=== PATIENT | female | born 1965 | race Caucasian/White ===

== ENCOUNTER 2017-10-06 11:48 | Inpatient (IN) | payer SELFPAY ==
[~2017-10-06] VITALS: Ht 167.6 cm; Wt 59.5 kg
[2017-10-06] MEDS: ACETAMINOPHEN/HYDROcodone 325 MG/10 MG TAB PO PRN ×2 (11:35→23:35)
[~2017-10-06 11:48] MED LIST: BACT800T5 PO; CELE20TA PO; CLIN1CAP5 PO; HYDR10TA16 PO; HYDROCHLOROT; LORA-474 PO; LORT7.5T3 PO
[2017-10-06 11:49] VITALS: BP 160/100; PULSE 114; RESP 20; TEMP 99.5; O2SAT 96
[2017-10-06 12:37] LABS: AUTOMATED NEUTROPHIL # 7.7 TH/MM3 (1.8-7.7); BASOPHIL % 0.1 % (0.0-2.0); EOSINOPHIL % 0.3 % (0.0-4.0); HEMATOCRIT 41.7 % (35.0-46.0); HEMOGLOBIN 14.3 GM/DL (11.6-15.3); LYMPH % 7.8 % (9.0-44.0); LYMPHOCYTE # 0.7 TH/MM3 (1.0-4.8); MEAN CELL VOLUME 106.6 FL (80.0-100.0); MEAN CORPUSCULAR HEMOGLOBIN 36.6 PG (27.0-34.0); MEAN CORPUSCULAR HGB CONC 34.3 % (32.0-36.0); MONO % 9.1 % (0.0-8.0); MONOCYTE # 0.8 TH/MM3 (0-0.9); NEUT % 82.7 % (16.0-70.0); PLATELET COUNT 147 TH/MM3 (150-450); RED BLOOD COUNT 3.91 MIL/MM3 (4.00-5.30); RED CELL DISTRIBUTION WIDTH 13.9 % (11.6-17.2); WHITE BLOOD COUNT 9.3 TH/MM3 (4.0-11.0)
[2017-10-06 12:59] LABS: ALBUMIN 4.3 GM/DL (3.4-5.0); ALT (GPT) 59 U/L (10-53); AST (GOT) 96 U/L (15-37); BICARBONATE 28.8 MEQ/L (21.0-32.0); BLOOD UREA NITROGEN 15 MG/DL (7-18); CALCIUM 9.4 MG/DL (8.5-10.1); CHLORIDE 97 MEQ/L (98-107); CREATININE 1.03 MG/DL (0.50-1.00); GLUCOSE,RANDOM 127 MG/DL (74-106); SODIUM (NA) 134 MEQ/L (136-145)
[2017-10-06 13:02] LABS: ALKALINE PHOSPHATASE 120 U/L (45-117); LIPASE 7510 U/L (73-393); TOTAL BILIRUBIN ADULT 0.8 MG/DL (0.2-1.0); TOTAL PROTEIN 8.7 GM/DL (6.4-8.2)
--- NOTE | 2017-10-06 14:09 | PD ---
HPI Chief Complaint: Abdominal Pain Time Seen by Provider: 14:08 Travel History International Travel<30 days: No Contact w/Intl Traveler<30days: No Traveled to known affect area: No History of Present Illness HPI 52-year-old female came to the emergency room with history of epigastric pain radiating to both sides and to her back. She says this is been going on for past 2 days. She has been nauseous but did not vomit. Bowel movements are normal. Patient has not had this kind of pain in the past. She drinks alcohol and says she does not drink every day but most of the days of the week. She did drink yesterday and the day before. She drinks vodka. There was blood test done in triage and the results of back by the time she came in the emergency room. Her lipase is markedly elevated. Patient had her gallbladder taken out 10 years ago. FOR[facility]LY [facility] Past Medical History Narrative Medical List of her past medical, surgical, social and family history is reviewed from the nursing note. Blood Disorders: No Anxiety: Yes Depression: Yes Cancer: No Cardiovascular Problems: Yes (HTN) Endocrine: Yes Genitourinary: No Hypertension: Yes Immune Disorder: No Implanted Vascular Access Dvce: Yes Kidney Stones: Yes Musculoskeletal: Yes Neurologic: No Psychiatric: No Respiratory: No Thyroid Disease: Yes ?: Not Past Surgical History Body Medical Devices: METAL IN TOOTH FROM ROOT CANAL Other Surgery: Yes (LEFT FOOT) Social History Alcohol Use: Yes (SOCIAL) Tobacco Use: Yes (1 PPD) Substance Use: No Allergies-Medications (Allergen,Severity, Reaction): Coded Allergies: No Known Drug Allergies (Verified Allergy, Unknown, 10/06/17) Comments List of her allergies reviewed from the nursing note. Reported Meds & Prescriptions Reported Meds & Active Scripts Active Reported Paroxetine (Paroxetine HCl) 10 Mg Tab 10 Mg PO DAILY Hydrocodone-Acetaminophen 10-325 mg Tab 1 Tab PO Q4H PRN Lorazepam 1 Mg Tab 1 Mg PO Q8H PRN Xanax (Alprazolam) 1 Mg Tab 1 Mg PO Q6H PRN Amlodipine (Amlodipine Besylate) 5 Mg Tab 5 Mg PO DAILY Narrative Medication List of her home medications reviewed from the nursing note. Review of Systems Except as stated in HPI: all other systems reviewed are Neg Gastrointestinal: Positive: Nausea, Abdominal Pain Physical Exam Narrative GENERAL: Awake, alert, moderate to significant distress SKIN: Focused skin assessment warm/dry. HEAD: Atraumatic. Normocephalic. EYES: Pupils equal and round. No scleral icterus. No injection or drainage. ENT: No nasal bleeding or discharge. Mucous membranes pink and moist. NECK: Trachea midline. No JVD. CARDIOVASCULAR: Regular rate and rhythm. No murmur appreciated. RESPIRATORY: No accessory muscle use. Clear to auscultation. Breath sounds equal bilaterally. GASTROINTESTINAL: Abdomen soft, tender in the epigastric area, nondistended. Hepatic and splenic margins not palpable. MUSCULOSKELETAL: No obvious deformities. No clubbing. No cyanosis. No edema. NEUROLOGICAL: Awake and alert. No obvious cranial nerve deficits. Motor grossly within normal limits. Normal speech. PSYCHIATRIC: Appropriate mood and affect; insight and judgment normal. Data Data Last Documented VS Vital Signs Date Time Temp Pulse Resp B/P (MAP) Pulse Ox O2 Delivery O2 Flow Rate FiO2 10/06/17 14:55 96 20 172/93 (119) 97 Room Air 10/06/17 11:49 99.5 Orders Orders Complete Blood Count With Diff (10/06/17 11:58) Comprehensive Metabolic Panel (10/06/17 11:58) Lipase (10/06/17 11:58) Urinalysis - C+S If Indicated (10/06/17 11:58) Sodium Chlor 0.9% 1000 Ml Inj (Ns 1000 M (10/06/17 14:45) Morphine Inj (Morphine Inj) (10/06/17 14:45) Admit Order (Ed Use Only) (10/06/17 15:24) Labs Laboratory Tests Test 10/06/17 12:06 10/06/17 14:40 White Blood Count 9.3 TH/MM3 Red Blood Count 3.91 MIL/MM3 Hemoglobin 14.3 GM/DL Hematocrit 41.7 % Mean Corpuscular Volume 106.6 FL Mean Corpuscular Hemoglobin 36.6 PG Mean Corpuscular Hemoglobin Concent 34.3 % Red Cell Distribution Width 13.9 % Platelet Count 147 TH/MM3 Mean Platelet Volume 9.0 FL Neutrophils (%) (Auto) 82.7 % Lymphocytes (%) (Auto) 7.8 % Monocytes (%) (Auto) 9.1 % Eosinophils (%) (Auto) 0.3 % Basophils (%) (Auto) 0.1 % Neutrophils # (Auto) 7.7 TH/MM3 Lymphocytes # (Auto) 0.7 TH/MM3 Monocytes # (Auto) 0.8 TH/MM3 Eosinophils # (Auto) 0.0 TH/MM3 Basophils # (Auto) 0.0 TH/MM3 CBC Comment DIFF FINAL Differential Comment Blood Urea Nitrogen 15 MG/DL Creatinine 1.03 MG/DL Random Glucose 127 MG/DL Total Protein 8.7 GM/DL Albumin 4.3 GM/DL Calcium Level 9.4 MG/DL Alkaline Phosphatase 120 U/L Aspartate Amino Transf (AST/SGOT) 96 U/L Alanine Aminotransferase (ALT/SGPT) 59 U/L Total Bilirubin 0.8 MG/DL Sodium Level 134 MEQ/L Potassium Level 3.8 MEQ/L Chloride Level 97 MEQ/L Carbon Dioxide Level 28.8 MEQ/L Anion Gap 8 MEQ/L Triglycerides Level 99 MG/DL Lipase 7510 U/L Urine Color YELLOW Urine Turbidity CLEAR Urine pH 5.5 Urine Specific [place] 1.016 Urine Protein NEG mg/dL Urine Glucose (UA) NEG mg/dL Urine Ketones NEG mg/dL Urine Occult Blood NEG Urine Nitrite NEG Urine Bilirubin NEG Urine Urobilinogen LESS THAN 2.0 MG/DL Urine Leukocyte Esterase NEG Urine WBC LESS THAN 1 /hpf Urine Squamous Epithelial Cells <1 /hpf Microscopic Urinalysis Comment CULT NOT INDICATED MDM Medical Decision Making Medical Screen Exam Complete: Yes Emergency Medical Condition: Yes Medical Record Reviewed: Yes Differential Diagnosis Acute pancreatitis Narrative Course 3:05 PM patient has been medicated for pain and IV fluid given. I had a long discussion with her and expressed to her my concerns about her significantly elevated lipase and the need to be admitted, stay nothing by mouth and get IV fluid and pain medication. Patient has agreed to stay. Awaiting for the hospitalist to call back. Procedures EKG Prior to Arrival: No Diagnosis Primary Impression: Acute pancreatitis Qualified Codes: K85.90 - Acute pancreatitis without necrosis or infection, unspecified Additional Impression: Intractable pain Admitting Information Admitting Physician Requests: Yessenia Leong MD Oct 06, 2017 14:08
[2017-10-06] MEDS ORDERED: MORPHINE SULFATE 2 MG/ML INJ IV PUSH ONE (14:45)
[2017-10-06] MEDS ORDERED: SODIUM CHLOR 0.9% 1000 ML INJ 1,000 ML IV ONE (14:45)
[2017-10-06] MEDS ORDERED: LORA1TAB12 PO (14:54)
[2017-10-06] MEDS ORDERED: PARO10TA2 PO (14:54)
[2017-10-06] MEDS ORDERED: XANA1TAB2 PO (14:54)
[2017-10-06] MEDS ORDERED: AMLO5TAB2 PO (14:54)
[2017-10-06] MEDS ORDERED: HYDR-3583 PO (14:54)
[2017-10-06 14:55] VITALS: BP 172/93; PULSE 96; RESP 20; O2SAT 97
[2017-10-06] MEDS ORDERED: ACETAMINOPHEN 325 MG TAB PO PRN (15:30)
[2017-10-06] MEDS ORDERED: cloNIDine HCL 0.1 MG TAB PO PRN (15:30)
[2017-10-06] MEDS ORDERED: LORazepam 2 MG TAB PO PRN (15:30)
[2017-10-06] MEDS ORDERED: FLUMAZENIL 0.5 MG/5 ML VIAL IV PUSH PRN (15:30)
[2017-10-06] MEDS ORDERED: ACETAMINOPHEN/HYDROcodone 325 MG/5 MG TAB PO PRN (15:30)
[2017-10-06] MEDS ORDERED: SODIUM CHLORIDE 0.9% FLUSH 10 ML FLUSH IV FLUSH PRN (15:30)
[2017-10-06] MEDS ORDERED: LORazepam 2 MG/ML VIAL IV PUSH PRN ×4 (15:30)
[2017-10-06] MEDS ORDERED: LORazepam 1 MG TAB PO PRN (15:30)
[2017-10-06] MEDS ORDERED: MORPHINE SULFATE 2 MG/ML INJ IV PUSH PRN ×2 (15:30→16:15)
[2017-10-06] MEDS ORDERED: NALOXONE HCL 0.4 MG/ML AMP IV PUSH PRN (15:30)
[2017-10-06 15:38] LABS: BILIRUBIN, URINE NEG (NEG); BLOOD, URINE NEG (NEG); GLUCOSE,URINE NEG (NEG); KETONE, URINE NEG (NEG); NITRITE,URINE NEG (NEG); PH, URINE 5.5 (5.0-8.5); SQUAMOUS EPITHELIAL CELL URINE <1 /hpf (0-5); URINE COLOR YELLOW (YELLW/STRAW); URINE LEUKOCYTE ESTERASE NEG (NEG)
[2017-10-06] MEDS: SODIUM CHLOR 0.9% 1000 ML INJ 1,000 ML IV SCH ×2 (15:55→23:21)
[2017-10-06 16:00] VITALS: BP 171/92; PULSE 97; RESP 20; TEMP 98.2; O2SAT 98
--- NOTE | 2017-10-06 16:04 | HHI.HP ---
[facility] Service [facility] Primary Care Physician Mable Del Valle D.O. Admission Diagnosis acute pancreatitis, intractable pain Diagnoses: Chief Complaint: Abdominal pain with nausea and vomiting Travel History International Travel<30 Days: No Contact w/Intl Traveler <30 Da: No Traveled to Known Affected Are: No History of Present Illness 50-year-old white female with history of hypertension presents emergency room with a 2 day history of worsening nausea, nonbilious vomiting, upper epigastric abdominal pain worse with solid and liquid food intake. She denies any associated diarrhea and denies any bloody stools or black stools. She denies any unusual food intake or recent travels. She reports she had previous gallbladder removal. She denies any previous symptoms similar to this. She describes abdominal pain as a constant sharp abdominal pain with bandlike radiation. She reports he does drink 2-3 alcoholic liquor drinks on a daily basis. She states that she does not have a history of all withdrawal or alcohol abuse. She states that she takes chronic [place] for pain as prescribed by her primary care physician for her history of chronic leg and foot pain due to previous trauma to the area. She also takes Ativan for her history of anxiety. She states that she is not allergic to codeine as documented previously her records. She denies any associated chills or fever with her symptoms. Review of Systems Constitutional: COMPLAINS OF: Change in appetite, DENIES: Fatigue, Fever, Chills Endocrine: DENIES: Heat/cold intolerance Eyes: DENIES: Blurred vision, Eye pain, Vision loss Ears, nose, mouth, throat: DENIES: Hearing loss, Nasal discharge, Throat pain, Ear Pain, Sinus Pain Respiratory: DENIES: Cough, Shortness of breath Cardiovascular: DENIES: Chest pain, Palpitations, Dyspnea on Exertion, Lower Extremity Edema Gastrointestinal: COMPLAINS OF: Abdominal pain, Nausea, Vomiting, Anorexia, DENIES: Black stools, Bloody stools, Constipation, Diarrhea, Difficulty Swallowing Genitourinary: DENIES: Dysuria Musculoskeletal: DENIES: Joint pain, Muscle aches, Stiffness Integumentary: DENIES: Rash Hematologic/lymphatic: DENIES: Bruising, Lymphadenopathy Immunologic/allergic: DENIES: Eczema Neurologic: DENIES: Headache, Localized weakness, Paresthesias Psychiatric: COMPLAINS OF: Anxiety, DENIES: Depression, Suicidal Ideation Past Family Social History Past Medical History Chronic pain, lower leg due to previous trauma Hypertension Anxiety Past Surgical History Previous left leg surgery due to trauma Cholecystectomy Reported Medications Hydrocodone-Acetaminophen 10-325 mg Tab 1 Tab PO Q4H PRN Lorazepam 1 Mg Tab 1 Mg PO Q8H PRN Amlodipine (Amlodipine Besylate) 5 Mg Tab 5 Mg PO DAILY Question with diuretic - possibly HCTZ, she does not recall the dosage of the medication which she takes daily Allergies: Coded Allergies: codeine (Unverified Allergy, Severe, RASH AND ITCHING, 10/06/17) Family History Maternal aunt of breast cancer at 55 Father had colon cancer Social History Smokes 1 pack series per day Drinks 2-3 alcoholic liquor drinks daily Physical Exam Vital Signs Vital Signs Date Time Temp Pulse Resp B/P (MAP) Pulse Ox O2 Delivery O2 Flow Rate FiO2 10/06/17 14:55 96 20 172/93 (119) 97 Room Air 10/06/17 11:49 99.5 114 20 160/100 (120) 96 Room Air Physical Exam GENERAL: This is a well-nourished, well-developed patient, in no apparent distress. SKIN: No rashes, ecchymoses or lesions. Cool and dry. HEAD: Atraumatic. Normocephalic. No temporal or scalp tenderness. EYES: Pupils equal round and reactive. Extraocular motions intact. No scleral icterus. No injection or drainage. ENT: Nose without bleeding, purulent drainage or septal hematoma. Throat without erythema, tonsillar hypertrophy or exudate. Uvula midline. Airway patent. NECK: Trachea midline. No JVD or lymphadenopathy. Supple, nontender, no meningeal signs. CARDIOVASCULAR: Regular rate and rhythm without murmurs, gallops, or rubs. RESPIRATORY: Clear to auscultation. Breath sounds equal bilaterally. No wheezes , rales, or rhonchi. GASTROINTESTINAL: Abdomen soft, non-tender, nondistended. No hepato-splenomegaly , or palpable masses. No guarding. MUSCULOSKELETAL: Extremities without clubbing, cyanosis, or edema. No joint tenderness, effusion, or edema noted. No calf tenderness. Negative Homans sign bilaterally. NEUROLOGICAL: Awake and alert. Cranial nerves II through XII intact. Motor and sensory grossly within normal limits. Five out of 5 muscle strength in all muscle groups. Normal speech. Laboratory Laboratory Tests Test 10/06/17 12:06 10/06/17 14:40 White Blood Count 9.3 Red Blood Count 3.91 Hemoglobin 14.3 Hematocrit 41.7 Mean Corpuscular Volume 106.6 Mean Corpuscular Hemoglobin 36.6 Mean Corpuscular Hemoglobin Concent 34.3 Red Cell Distribution Width 13.9 Platelet Count 147 Mean Platelet Volume 9.0 Neutrophils (%) (Auto) 82.7 Lymphocytes (%) (Auto) 7.8 Monocytes (%) (Auto) 9.1 Eosinophils (%) (Auto) 0.3 Basophils (%) (Auto) 0.1 Neutrophils # (Auto) 7.7 Lymphocytes # (Auto) 0.7 Monocytes # (Auto) 0.8 Eosinophils # (Auto) 0.0 Basophils # (Auto) 0.0 CBC Comment DIFF FINAL Differential Comment Blood Urea Nitrogen 15 Creatinine 1.03 Random Glucose 127 Total Protein 8.7 Albumin 4.3 Calcium Level 9.4 Alkaline Phosphatase 120 Aspartate Amino Transf (AST/SGOT) 96 Alanine Aminotransferase (ALT/SGPT) 59 Total Bilirubin 0.8 Sodium Level 134 Potassium Level 3.8 Chloride Level 97 Carbon Dioxide Level 28.8 Anion Gap 8 Lipase 7510 Urine Color YELLOW Urine Turbidity CLEAR Urine pH 5.5 Urine Specific [place] 1.016 Urine Protein NEG Urine Glucose (UA) NEG Urine Ketones NEG Urine Occult Blood NEG Urine Nitrite NEG Urine Bilirubin NEG Urine Urobilinogen LESS THAN 2.0 Urine Leukocyte Esterase NEG Urine WBC LESS THAN 1 Urine Squamous Epithelial Cells <1 Microscopic Urinalysis Comment CULT NOT INDICATED Result Diagram: 10/06/17 1206 10/06/17 1206 Imaging Caprini VTE Risk Assessment Caprini VTE Risk Assessment: No/Low Risk (score <= 1) Caprini Risk Assessment Model Point Value = 1 Point Value = 2 Point Value = 3 Point Value = 5 Age 41-60 Minor surgery BMI > 25 kg/m2 Swollen legs Varicose veins or History of unexplained or recurrent spontaneous Oral contraceptives or hormone replacement Sepsis (< 1 month) Serious lung disease, including pneumonia (< 1 month) Abnormal pulmonary function Acute myocardial infarction Congestive heart failure (< 1 month) History of inflammatory bowel disease Medical patient at bed rest Age 61-74 Arthroscopic surgery Major open surgery (> 45 min) Laparoscopic surgery (> 45 min) Malignancy Confined to bed (> 72 hours) Immobilizing plaster cast Central venous access Age >= 75 History of VTE Family history of VTE Factor V Leiden Prothrombin [id number] Lupus anticoagulant Anticardiolipin antibodies Elevated serum homocysteine Heparin-induced thrombocytopenia Other congenital or acquired thrombophilia Stroke (< 1 month) Elective arthroplasty Hip, pelvis, or leg fracture Acute spinal cord injury (< 1 month) Prophylaxis Regimen Total Risk Factor Score Risk Level Prophylaxis Regimen 0-1 Low Early ambulation 2 Moderate Order ONE of the following: *Sequential Compression Device (SCD) *Heparin 5000 units SQ BID 3-4 Higher Order ONE of the following medications: *Heparin 5000 units SQ TID *Enoxaparin/Lovenox 40 mg SQ daily (WT < 150 kg, CrCl > 30 mL/min) *Enoxaparin/Lovenox 30 mg SQ daily (WT < 150 kg, CrCl > 10-29 mL/min) *Enoxaparin/Lovenox 30 mg SQ BID (WT < 150 kg, CrCl > 30 mL/min) AND/OR *Sequential Compression Device (SCD) 5 or more Highest Order ONE of the following medications: *Heparin 5000 units SQ TID (Preferred with Epidurals) *Enoxaparin/Lovenox 40 mg SQ daily (WT < 150 kg, CrCl > 30 mL/min) *Enoxaparin/Lovenox 30 mg SQ daily (WT < 150 kg, CrCl > 10-29 mL/min) *Enoxaparin/Lovenox 30 mg SQ BID (WT < 150 kg, CrCl > 30 mL/min) AND *Sequential Compression Device (SCD) Assessment and Plan Problem List: (1) Acute pancreatitis ICD Code: K85.90 - Acute pancreatitis without necrosis or infection, unspecified Status: Acute Assessment and Plan 1. Acute pancreatitis - etiology could be from alcohol induced although patient states that she is not a heavy drinker, as this hilum and the patient for IV pain control, IV fluid hydration, IV antiemetics for supportive care. Place patient on bowel rest with nothing by mouth. Monitor lipase and patient clinically and attempt to start liquid diet in the morning. 2. History of daily alcohol use - place on CIWA protocol to rule out any early alcohol withdrawal symptoms. 3. Hypertension -resume home amlodipine, start patient on clonidine. 4. Tobacco abuse-cessation counseling 5. DVT prophylaxis - No mechanical or pharmaceutical VTE prophalaxis administered due to patient's low risk assessment of VTE. Encouraged ambulation. Physician Certification 2 Midnight Certification Type: Admission for Inpatient Services Order for Inpatient Services The services are ordered in accordance with Medicare regulations or non- Medicare payer requirements, as applicable. In the case of services not specified as inpatient-only, they are appropriately provided as inpatient services in accordance with the 2-midnight benchmark. Estimated LOS (days): 2 days is the estimated time the patient will need to remain in the hospital, assuming treatment plan goals are met and no additional complications. Post-Hospital Plan: Home Problem Qualifiers (1) Acute pancreatitis: Qualified Codes: K85.90 - Acute pancreatitis without necrosis or infection, unspecified Temi Omalley MD Oct 06, 2017 16:04
[2017-10-06] MEDS: MORPHINE SULFATE 2 MG/ML INJ IV PUSH PRN ×2 (17:14→21:09)
[2017-10-06 17:26] VITALS: BP 165/100; PULSE 95; RESP 18; TEMP 98.5; O2SAT 94
[2017-10-06] MEDS: SODIUM CHLORIDE 0.9% FLUSH 10 ML FLUSH IV FLUSH SCH (19:47)
[2017-10-06] MEDS: LORazepam 0.5 MG TAB PO SCH (19:47)
[2017-10-06] MEDS: ONDANSETRON HCL 4 MG/2 ML VIAL IV PUSH PRN (19:47)
[2017-10-06] MEDS: cloNIDine HCL 0.1 MG TAB PO SCH (19:47)
[2017-10-06 20:00] VITALS: BP 165/96; PULSE 98; RESP 15; TEMP 97.9; O2SAT 95
[2017-10-07] VITALS: BP 165/100; PULSE 92; RESP 15; TEMP 98.5; O2SAT 96
[2017-10-07] MEDS: ACETAMINOPHEN/HYDROcodone 325 MG/10 MG TAB PO PRN ×6 (00:35→21:08)
[2017-10-07] MEDS: ONDANSETRON HCL 4 MG/2 ML VIAL IV PUSH PRN ×2 (02:09→08:15)
[2017-10-07] MEDS: MORPHINE SULFATE 2 MG/ML INJ IV PUSH PRN ×2 (02:09→08:02)
[2017-10-07 04:00] VITALS: BP 154/83; PULSE 82; RESP 16; TEMP 98.1; O2SAT 95
[2017-10-07 08:00] VITALS: BP_SYST 135; BP_SYST 151; BP_DIAS 65; BP_DIAS 94; PULSE 70; PULSE 84; RESP 16; TEMP 96.9; TEMP 98.1; O2SAT 95; O2SAT 96
[2017-10-07] MEDS: LORazepam 0.5 MG TAB PO SCH ×2 (08:04→19:48)
[2017-10-07] MEDS: amLODIPine BESYLATE 5 MG TAB PO SCH (08:04)
[2017-10-07] MEDS: THIAMINE HCL 100 MG TAB PO SCH (08:04)
[2017-10-07] MEDS: cloNIDine HCL 0.1 MG TAB PO SCH ×2 (08:04→19:48)
[2017-10-07] MEDS: MULTIVITAMINS/MINERALS THERAPEUTIC TAB PO SCH (08:04)
[2017-10-07] MEDS: SODIUM CHLOR 0.9% 1000 ML INJ 1,000 ML IV SCH ×4 (08:07→21:08)
[2017-10-07] MEDS: SODIUM CHLORIDE 0.9% FLUSH 10 ML FLUSH IV FLUSH SCH ×2 (08:07→19:48)
[2017-10-07 08:53] LABS: ALBUMIN 3.4 GM/DL (3.4-5.0); ALKALINE PHOSPHATASE 169 U/L (45-117); ALT (GPT) 189 U/L (10-53); AST (GOT) 496 U/L (15-37); BICARBONATE 29.6 MEQ/L (21.0-32.0); BLOOD UREA NITROGEN 8 MG/DL (7-18); CALCIUM 8.5 MG/DL (8.5-10.1); CHLORIDE 104 MEQ/L (98-107); CREATININE 0.68 MG/DL (0.50-1.00); GLOMERULAR FILTRATION RATE 91 ML/MIN (>89); GLUCOSE,RANDOM 91 MG/DL (74-106); LIPASE 5159 U/L (73-393); SODIUM (NA) 140 MEQ/L (136-145); TOTAL PROTEIN 6.9 GM/DL (6.4-8.2)
[2017-10-07] MEDS ORDERED: INFLUENZA VIRUS VACCINE (QUADRIVALENT) 0.5 ML SYR IM ONE (10:00)
--- NOTE | 2017-10-07 10:51 | HHI.PR ---
Subjective Remarks Downward trend in lipase today. She is dropped from about 7500 to 5000. Symptoms are not yet improving. Etiology is less likely to be related to a stone given history of cholecystectomy and a downward trend in her lipase. She only drinks occasionally alcohol versus viral etiology could be a cause. Objective Vital Signs Date Time Temp Pulse Resp B/P (MAP) Pulse Ox O2 Delivery O2 Flow Rate FiO2 10/07/17 04:00 98.1 82 16 154/83 (106) 95 10/07/17 00:00 98.5 92 15 165/100 (121) 96 10/06/17 20:00 97.9 98 15 165/96 (119) 95 10/06/17 17:26 98.5 95 18 165/100 (121) 94 10/06/17 17:20 (119) 10/06/17 16:00 98.2 97 20 171/92 (118) 98 10/06/17 14:55 96 20 172/93 (119) 97 Room Air 10/06/17 11:49 99.5 114 20 160/100 (120) 96 Room Air I/O 10/06/17 10/06/17 10/06/17 10/07/17 10/07/17 10/07/17 07:00 15:00 23:00 07:00 15:00 23:00 Intake Total 1000 ml Balance 1000 ml Intake IV Total 1000 ml # Voids 2 Result Diagram: 10/06/17 1206 10/07/17 0725 Objective Remarks GENERAL: NAD, A&Ox3 HEAD: Normocephalic. NECK: Supple, trachea midline. No lymphadenopathy. EYES: No scleral icterus. No injection or drainage. CARDIOVASCULAR: Regular rate and rhythm without murmurs, gallops, or rubs. RESPIRATORY: Breath sounds equal bilaterally. No accessory muscle use. GASTROINTESTINAL: Abdomen soft, nondistended. Epigastric tenderness. No guarding. MUSCULOSKELETAL: No cyanosis, or edema. SKIN: Warm and dry. NEURO: No focal neurological deficitis. A/P Problem List: (1) Acute pancreatitis ICD Code: K85.90 - Acute pancreatitis without necrosis or infection, unspecified Status: Acute (2) Intractable pain ICD Code: R52 - Pain, unspecified Status: Acute Assessment and Plan Acute pancreatitis Viral versus alcohol related etiology is primary suspect No evidence thus far of obstruction Continue to monitor lipase Continue IV hydration Continue pain treatments as needed Continue antibiotics Hypertension Continue amlodipine Continue clonidine Tobacco abuse Alcohol use Patient denies alcohol abuse Cessation of smoking recommended DVT prophylaxis Ambulation SCDs while in bed Problem Qualifiers (1) Acute pancreatitis: Qualified Codes: K85.90 - Acute pancreatitis without necrosis or infection, unspecified Omkar Shelley MD Oct 07, 2017 10:51
[2017-10-07 12:00] VITALS: BP 123/80; PULSE 70; RESP 16; TEMP 98.1; O2SAT 95
[2017-10-07] MEDS: HYDROmorphone HCL 2 MG TAB PO PRN ×3 (13:02→22:42)
[2017-10-07 16:00] VITALS: BP 141/86; PULSE 75; RESP 16; TEMP 98.4; O2SAT 94
[2017-10-07 20:00] VITALS: BP 147/87; PULSE 90; RESP 18; TEMP 98; O2SAT 95
[2017-10-08] VITALS: BP 160/99; PULSE 93; RESP 17; TEMP 98.1; O2SAT 96
[2017-10-08] MEDS: ACETAMINOPHEN/HYDROcodone 325 MG/10 MG TAB PO PRN ×4 (01:23→16:17)
[2017-10-08 04:00] VITALS: BP 145/86; PULSE 90; RESP 17; TEMP 98.7; O2SAT 97
[2017-10-08] MEDS: HYDROmorphone HCL 2 MG TAB PO PRN ×4 (04:14→17:16)
[2017-10-08] MEDS: SODIUM CHLOR 0.9% 1000 ML INJ 1,000 ML IV SCH ×2 (04:15→22:22)
[2017-10-08] MEDS: ONDANSETRON HCL 4 MG/2 ML VIAL IV PUSH PRN (04:58)
[2017-10-08 05:55] LABS: AUTOMATED NEUTROPHIL # 4.2 TH/MM3 (1.8-7.7); BASOPHIL % 0.1 % (0.0-2.0); EOSINOPHIL # 0.2 TH/MM3 (0-0.4); EOSINOPHIL % 3.2 % (0.0-4.0); HEMATOCRIT 31.2 % (35.0-46.0); HEMOGLOBIN 10.8 GM/DL (11.6-15.3); LYMPH % 11.3 % (9.0-44.0); LYMPHOCYTE # 0.6 TH/MM3 (1.0-4.8); MEAN CELL VOLUME 106.6 FL (80.0-100.0); MEAN CORPUSCULAR HEMOGLOBIN 36.9 PG (27.0-34.0); MEAN CORPUSCULAR HGB CONC 34.6 % (32.0-36.0); MEAN PLATELET VOLUME 9.3 FL (7.0-11.0); MONO % 9.6 % (0.0-8.0); MONOCYTE # 0.5 TH/MM3 (0-0.9); NEUT % 75.8 % (16.0-70.0); PLATELET COUNT 93 TH/MM3 (150-450); RED BLOOD COUNT 2.93 MIL/MM3 (4.00-5.30); RED CELL DISTRIBUTION WIDTH 13.6 % (11.6-17.2); WHITE BLOOD COUNT 5.5 TH/MM3 (4.0-11.0)
[2017-10-08 06:17] LABS: ALBUMIN 3.1 GM/DL (3.4-5.0); AST (GOT) 142 U/L (15-37); BICARBONATE 27.2 MEQ/L (21.0-32.0); BLOOD UREA NITROGEN 5 MG/DL (7-18); CHLORIDE 104 MEQ/L (98-107); CREATININE 0.53 MG/DL (0.50-1.00); GLUCOSE,RANDOM 82 MG/DL (74-106); SODIUM (NA) 139 MEQ/L (136-145)
[2017-10-08 06:20] LABS: ALKALINE PHOSPHATASE 137 U/L (45-117); ALT (GPT) 97 U/L (10-53); LIPASE 2480 U/L (73-393); TOTAL BILIRUBIN ADULT 0.5 MG/DL (0.2-1.0); TOTAL PROTEIN 6.6 GM/DL (6.4-8.2)
[2017-10-08] MEDS: amLODIPine BESYLATE 5 MG TAB PO SCH (07:47)
[2017-10-08] MEDS: LORazepam 0.5 MG TAB PO SCH ×2 (07:48→22:23)
[2017-10-08] MEDS: cloNIDine HCL 0.1 MG TAB PO SCH ×2 (07:48→22:23)
[2017-10-08] MEDS: THIAMINE HCL 100 MG TAB PO SCH (07:48)
[2017-10-08] MEDS: SODIUM CHLORIDE 0.9% FLUSH 10 ML FLUSH IV FLUSH SCH ×2 (07:49→22:23)
[2017-10-08] MEDS: MULTIVITAMINS/MINERALS THERAPEUTIC TAB PO SCH (07:49)
[2017-10-08 08:00] VITALS: BP 163/86; PULSE 83; RESP 18; TEMP 97.8; O2SAT 98
[2017-10-08] MEDS ORDERED: POTASSIUM CHLORIDE 20 MEQ PWD PACKET PO ONE (09:00)
[2017-10-08] MEDS ORDERED: ENALAPRILAT 1.25 MG/ML VIAL IV PUSH PRN (09:00)
[2017-10-08 12:00] VITALS: BP 133/82; PULSE 81; RESP 18; TEMP 97.8; O2SAT 97
[2017-10-08 14:57] VITALS: BP 142/80; PULSE 66; RESP 18; TEMP 98; O2SAT 99
--- NOTE | 2017-10-08 17:20 | HHI.PR ---
Subjective Remarks Further downward trend and lipase. Pain is not yet controlled. Patient has been on [place] and Dilaudid for breakthrough. LFTs have been elevated but also have a downward trend. No nausea or vomiting. Objective Vital Signs Date Time Temp Pulse Resp B/P (MAP) Pulse Ox O2 Delivery O2 Flow Rate FiO2 10/08/17 14:57 98.0 66 18 142/80 (100) 99 10/08/17 12:00 97.8 81 18 133/82 (99) 97 10/08/17 08:00 97.8 83 18 163/86 (111) 98 10/08/17 04:00 98.7 90 17 145/86 (105) 97 10/08/17 00:00 98.1 93 17 160/99 (119) 96 10/07/17 20:00 98.0 90 18 147/87 (107) 95 I/O 10/07/17 10/07/17 10/07/17 10/08/17 10/08/17 10/08/17 07:00 15:00 23:00 07:00 15:00 23:00 Intake Total 2614 ml 2080 ml 1730 ml Balance 2614 ml 2080 ml 1730 ml Intake Oral 1080 ml 480 ml IV Total 2614 ml 1000 ml 1250 ml # Voids 5 1 5 Result Diagram: 10/08/17 0455 10/08/17 0455 Objective Remarks GENERAL: NAD, A&Ox3 HEAD: Normocephalic. NECK: Supple, trachea midline. No lymphadenopathy. EYES: No scleral icterus. No injection or drainage. CARDIOVASCULAR: Regular rate and rhythm without murmurs, gallops, or rubs. RESPIRATORY: Breath sounds equal bilaterally. No accessory muscle use. GASTROINTESTINAL: Abdomen soft, nondistended. Epigastric tenderness. No guarding. MUSCULOSKELETAL: No cyanosis, or edema. SKIN: Warm and dry. NEURO: No focal neurological deficitis. A/P Problem List: (1) Acute pancreatitis ICD Code: K85.90 - Acute pancreatitis without necrosis or infection, unspecified Status: Acute (2) Intractable pain ICD Code: R52 - Pain, unspecified Status: Acute Assessment and Plan 52-year-old female admitted secondary to acute pancreatitis. V. Some signs of improvement. Continue to monitor lipase, LFTs, and patient's clinical status. Possible discharge tomorrow if pain is controlled and trends continue to improve. If there are any signs of worsening will consider imaging. Acute pancreatitis Viral versus alcohol related etiology is primary suspect No evidence thus far of obstruction Continue to monitor lipase Continue IV hydration Continue pain treatments as needed Continue antibiotics Hypertension Continue amlodipine Continue clonidine Tobacco abuse Alcohol use Patient denies alcohol abuse Cessation of smoking recommended DVT prophylaxis Ambulation SCDs while in bed Problem Qualifiers (1) Acute pancreatitis: Qualified Codes: K85.90 - Acute pancreatitis without necrosis or infection, unspecified Omkar Shelley MD Oct 08, 2017 17:20
[2017-10-08] MEDS ORDERED: oxyCODONE/ACETAMINOPHEN 5 MG/325 MG TAB PO PRN (17:30)
[2017-10-08] MEDS ORDERED: NICOTINE 21 MG/24 HR PATCH T-DERMAL ONE (17:30)
[2017-10-08 20:05] VITALS: BP 155/92; PULSE 81; RESP 17; TEMP 97.9; O2SAT 96
[2017-10-08] MEDS: oxyCODONE/ACETAMINOPHEN 10 MG/325 MG TAB PO PRN (22:24)
[2017-10-09 00:10] VITALS: BP 144/86; PULSE 74; RESP 17; TEMP 97; O2SAT 98
[2017-10-09 03:40] VITALS: BP 159/92; PULSE 80; RESP 17; TEMP 97.7; O2SAT 97
[2017-10-09] MEDS: oxyCODONE/ACETAMINOPHEN 10 MG/325 MG TAB PO PRN ×3 (04:35→12:21)
[2017-10-09] MEDS: HYDROmorphone HCL 2 MG TAB PO PRN ×2 (06:15→10:30)
[2017-10-09] MEDS: SODIUM CHLOR 0.9% 1000 ML INJ 1,000 ML IV SCH (07:21)
[2017-10-09 07:43] VITALS: BP 149/87; PULSE 72; RESP 18; TEMP 97.2; O2SAT 96
[2017-10-09 07:55] LABS: AUTOMATED NEUTROPHIL # 3.1 TH/MM3 (1.8-7.7); BASOPHIL % 0.3 % (0.0-2.0); EOSINOPHIL # 0.1 TH/MM3 (0-0.4); EOSINOPHIL % 3.1 % (0.0-4.0); HEMATOCRIT 29.3 % (35.0-46.0); HEMOGLOBIN 10.2 GM/DL (11.6-15.3); LYMPH % 15.2 % (9.0-44.0); LYMPHOCYTE # 0.7 TH/MM3 (1.0-4.8); MEAN CELL VOLUME 106.6 FL (80.0-100.0); MEAN CORPUSCULAR HEMOGLOBIN 37.1 PG (27.0-34.0); MEAN CORPUSCULAR HGB CONC 34.8 % (32.0-36.0); MEAN PLATELET VOLUME 9.6 FL (7.0-11.0); MONO % 12.2 % (0.0-8.0); MONOCYTE # 0.5 TH/MM3 (0-0.9); NEUT % 69.2 % (16.0-70.0); PLATELET COUNT 108 TH/MM3 (150-450); RED BLOOD COUNT 2.75 MIL/MM3 (4.00-5.30); RED CELL DISTRIBUTION WIDTH 13.3 % (11.6-17.2); WHITE BLOOD COUNT 4.5 TH/MM3 (4.0-11.0)
[2017-10-09 08:15] LABS: AST (GOT) 66 U/L (15-37); BICARBONATE 29.6 MEQ/L (21.0-32.0); BLOOD UREA NITROGEN 3 MG/DL (7-18); CALCIUM 8.3 MG/DL (8.5-10.1); CHLORIDE 102 MEQ/L (98-107); GLUCOSE,RANDOM 84 MG/DL (74-106); SODIUM (NA) 140 MEQ/L (136-145)
[2017-10-09 08:19] LABS: ALKALINE PHOSPHATASE 118 U/L (45-117); ALT (GPT) 67 U/L (10-53); LIPASE 2108 U/L (73-393); TOTAL BILIRUBIN ADULT 0.3 MG/DL (0.2-1.0); TOTAL PROTEIN 6.5 GM/DL (6.4-8.2)
[2017-10-09] MEDS: amLODIPine BESYLATE 5 MG TAB PO SCH (08:37)
[2017-10-09] MEDS: cloNIDine HCL 0.1 MG TAB PO SCH (08:37)
[2017-10-09] MEDS: MULTIVITAMINS/MINERALS THERAPEUTIC TAB PO SCH (08:37)
[2017-10-09] MEDS: LORazepam 0.5 MG TAB PO SCH (08:37)
[2017-10-09] MEDS: THIAMINE HCL 100 MG TAB PO SCH (08:38)
[2017-10-09] MEDS: SODIUM CHLORIDE 0.9% FLUSH 10 ML FLUSH IV FLUSH SCH (08:38)
[2017-10-09] MEDS ORDERED: POTASSIUM CHLORIDE 20 MEQ PWD PACKET PO ONE (08:45)
[2017-10-09] MEDS ORDERED: NICOTINE 21 MG/24 HR PATCH T-DERMAL SCH (09:00)
[2017-10-09] MEDS ORDERED: REMOVE OLD PATCH T-DERMAL SCH (09:00)
[2017-10-09] MEDS ORDERED: OXYC1TAB36 PO (10:00)
[2017-10-09] MEDS ORDERED: DILA2TAB4 PO (10:00)
[2017-10-09] MEDS ORDERED: DOCU100C15 PO (10:02)
[2017-10-09 10:25] VITALS: BP 121/78; PULSE 73; RESP 18; TEMP 97.7; O2SAT 97
--- NOTE | 2017-10-09 14:05 | HHI.DS ---
Discharge Summary Admission Date Oct 06, 2017 at 15:25 Discharge Date: Oct 09, 2017 Admitting Diagnosis acute pancreatitis, intractable pain (1) Acute pancreatitis ICD Code: K85.90 - Acute pancreatitis without necrosis or infection, unspecified Diagnosis: Principal Status: Acute Procedures none Brief History - From Admission 50-year-old white female with history of hypertension presents emergency room with a 2 day history of worsening nausea, nonbilious vomiting, upper epigastric abdominal pain worse with solid and liquid food intake. She denies any associated diarrhea and denies any bloody stools or black stools. She denies any unusual food intake or recent travels. She reports she had previous gallbladder removal. She denies any previous symptoms similar to this. She describes abdominal pain as a constant sharp abdominal pain with bandlike radiation. She reports he does drink 2-3 alcoholic liquor drinks on a daily basis. She states that she does not have a history of all withdrawal or alcohol abuse. She states that she takes chronic Perris for pain as prescribed by her primary care physician for her history of chronic leg and foot pain due to previous trauma to the area. She also takes Ativan for her history of anxiety. She states that she is not allergic to codeine as documented previously her records. She denies any associated chills or fever with her symptoms. CBC/BMP: 10/09/17 0631 10/09/17 0631 Significant Findings Laboratory Tests Test 10/06/17 14:40 10/07/17 07:25 10/08/17 04:55 10/09/17 06:31 Alkaline Phosphatase 169 U/L (45-117) 137 U/L (45-117) 118 U/L (45-117) Aspartate Amino Transf (AST/SGOT) 496 U/L (15-37) 142 U/L (15-37) 66 U/L (15-37) Alanine Aminotransferase (ALT/SGPT) 189 U/L (10-53) 97 U/L (10-53) 67 U/L (10-53) Potassium Level 3.4 MEQ/L (3.5-5.1) 3.1 MEQ/L (3.5-5.1) 3.0 MEQ/L (3.5-5.1) Lipase 5159 U/L (73-393) 2480 U/L (73-393) 2108 U/L (73-393) Red Blood Count 2.93 MIL/MM3 (4.00-5.30) 2.75 MIL/MM3 (4.00-5.30) Hemoglobin 10.8 GM/DL (11.6-15.3) 10.2 GM/DL (11.6-15.3) Hematocrit 31.2 % (35.0-46.0) 29.3 % (35.0-46.0) Mean Corpuscular Volume 106.6 FL (80.0-100.0) 106.6 FL (80.0-100.0) Mean Corpuscular Hemoglobin 36.9 PG (27.0-34.0) 37.1 PG (27.0-34.0) Platelet Count 93 TH/MM3 (150-450) 108 TH/MM3 (150-450) Neutrophils (%) (Auto) 75.8 % (16.0-70.0) Monocytes (%) (Auto) 9.6 % (0.0-8.0) 12.2 % (0.0-8.0) Lymphocytes # (Auto) 0.6 TH/MM3 (1.0-4.8) 0.7 TH/MM3 (1.0-4.8) Platelet Estimate LOW (NORMAL) Blood Urea Nitrogen 5 MG/DL (7-18) 3 MG/DL (7-18) Albumin 3.1 GM/DL (3.4-5.0) 3.0 GM/DL (3.4-5.0) Calcium Level 8.0 MG/DL (8.5-10.1) 8.3 MG/DL (8.5-10.1) Hospital Course Mrs. Ruiz is a 52-year-old female. She is admitted secondary to acute pancreatitis. Transaminitis was also present. No evidence of obstruction based on a lack of gallbladder and a normal bilirubin level. Through time her elevated lipase improved and her LFTs improved. She is on Perris baseline and had difficulty with pain control. Pain is been controlled with Percocet and Dilaudid. Downward trends in all abnormal factors are positive sign for good recovery. Medically stable for discharge to home. Pt Condition on Discharge: Stable Discharge Disposition: Discharge Home Discharge Time: <= 30 minutes Discharge Instructions DIET: Follow Instructions for: As Tolerated, No Restrictions Activities you can perform: Regular-No Restrictions Follow up Referrals: PCP Follow-up - 2 Weeks New Medications: Docusate Sodium (Docusate Sodium) 100 Mg Cap 100 MG PO BID PRN for CONSTIPATION, #60 CAP 0 Refills Hydromorphone (Dilaudid) 2 Mg Tab 2 MG PO Q6HR PRN for Breakthrough Pain, #30 TAB Oxycodone HCl/Acetaminophen (Oxycodone-Acetaminophen 10-325) 10 Mg-325 Mg Tablet 1 TAB PO Q6H PRN for Pain 7 to 10, #60 TAB Continued Medications: Alprazolam (Xanax) 1 Mg Tab 1 MG PO Q6H PRN for ANXIETY, TAB 0 Refills Amlodipine (Amlodipine) 5 Mg Tab 5 MG PO DAILY for Blood Pressure Management, TAB 0 Refills Lorazepam (Lorazepam) 1 Mg Tab 1 MG PO Q8H PRN for ANXIETY, TAB 0 Refills Paroxetine (Paroxetine) 10 Mg Tab 10 MG PO DAILY, TAB 0 Refills Discontinued Medications: Hydrocodone-Acetaminophen (Hydrocodone-Acetaminophen) 10-325 mg Tab 1 TAB PO Q4H PRN for PAIN, TAB 0 Refills Omkar Shelley MD Oct 09, 2017 14:04
== END 2017-10-09 13:44 | disposition home or self-care (01) | DRG 440 ==
LOC: NEPE 11:48 → NEDA 15:25 → N06A 16:49
PROVIDERS: ADMIT Hospitalist; ATTEND Hospitalist
DX: K85.90 Acute pancreatitis without necrosis or infection, unspecified (principal); I10 Essential (primary) hypertension; M79.673 Pain in unspecified foot; M79.606 Pain in leg, unspecified; G89.29 Other chronic pain; R74.0 Nonspecific elevation of levels of transaminase and lactic acid dehydrogenase [LDH]; F32.9 Major depressive disorder, single episode, unspecified; F41.9 Anxiety disorder, unspecified; F17.210 Nicotine dependence, cigarettes, uncomplicated; Z23 Encounter for immunization
CPT/HCPCS: 80053; 81001; 83690; 84478; 85025; 90471; 90686; 96374; G0008; J2060; J2270; J2405; J7030; Q2038